=== PATIENT | female | born 1975 | race African-American/Black ===

== ENCOUNTER → 2017-02-08 | Outpatient (CLI) | payer MEDICARE, MEDICAID ==
[~2017-02-08] MED LIST: ATOR20TA9 PO; ERGO500017 PO; FERR324T5 PO; FLUT16SP2 INH; LOSA25TA5 PO; REGADENOSON 0.4 MG/5 ML SYRINGE ONE; SODI650T PO
== END | disposition home or self-care (01) ==
LOC: CFH 07:31
PROVIDERS: ATTEND Internal Medicine Cardiovascular Disease
DX: R07.9 Chest pain, unspecified (principal); I10 Essential (primary) hypertension; R06.00 Dyspnea, unspecified
CPT/HCPCS: 78452; 93017; 93306; A9502; J2785

== ENCOUNTER 2017-04-21 06:37 | Day surgery (SDC) | payer MEDICARE, MEDICAID ==
[~2017-04-21] VITALS: Ht 149.9 cm; Wt 74.0 kg
[~2017-04-21 06:37] MED LIST changes: -REGADENOSON 0.4 MG/5 ML SYRINGE ONE
[2017-04-21] MEDS ORDERED: HEPARIN 1,000 UNITS/ML, 10ML ONE (07:12)
[2017-04-21] MEDS ORDERED: PROTAMINE SULFATE 10 MG/ML, 5ML ONE (07:12)
[2017-04-21] MEDS ORDERED: BUPIVACAINE/PF 0.5% ONE (07:13)
[2017-04-21] MEDS ORDERED: THROMBIN 5,000 UNIT VIAL TP ONE (07:13)
[2017-04-21 08:02] VITALS: BP 148/99
[2017-04-21] MEDS ORDERED: CINA60TA PO (08:13)
[2017-04-21] MEDS ORDERED: ESCI20TA10 PO (08:13)
[2017-04-21] MEDS ORDERED: ALPR0.25 PO (08:14)
[2017-04-21] MEDS ORDERED: LIDOCAINE 1%, 2ML ONE (08:21)
[2017-04-21 08:27] LABS: HCG UR OBC PASS
[2017-04-21] MEDS ORDERED: FENTANYL PF 100 MCG/2ML ONE ×3 (10:08→12:18)
[2017-04-21] MEDS ORDERED: MIDAZOLAM 1 MG/ML, 2ML ONE (10:08)
[2017-04-21] MEDS ORDERED: CEFAZOLIN 1,000 MG ONE (10:41)
[2017-04-21] MEDS ORDERED: ONDANSETRON 2MG/ML, 2ML ONE (10:41)
[2017-04-21] MEDS ORDERED: PROPOFOL 10 MG/ML, 20ML ONE (10:41)
[2017-04-21] MEDS ORDERED: DEXAMETHASONE 4 MG/ML, 1ML ONE (10:41)
[2017-04-21] MEDS ORDERED: OXYcodone 5 MG/5 ML ORAL.SOL UDC ONE (12:19)
[2017-04-21] MEDS: FENTANYL PF 100 MCG/2ML IV PRN ×3 (12:20→12:58)
[2017-04-21] MEDS ORDERED: HYDROcodone/APAP 7.5-325MG/15ML UDC ONE (12:37)
[2017-04-21] MEDS ORDERED: HYDROcodone/APAP 7.5-325MG/15ML UDC PO PRN (13:30)
== END 2017-04-21 15:30 | disposition home or self-care (01) ==
LOC: OUT 06:37
PROVIDERS: ATTEND Surgery Vascular Surgery
DX: I12.0 Hypertensive chronic kidney disease with stage 5 chronic kidney disease or end stage renal disease (principal); N18.6 End stage renal disease; Z88.8 Allergy status to other drugs, medicaments and biological substances; E21.3 Hyperparathyroidism, unspecified; D64.9 Anemia, unspecified; H54.7 Unspecified visual loss
CPT/HCPCS: 36415; 36821; 80047; 81025; J0690; J1100; J1644; J2250; J2405; J2704; J2720; J3010; J3490

== ENCOUNTER 2017-06-19 13:15 | Emergency (ER) | payer MEDICARE, MEDICAID ==
[~2017-06-19] VITALS: Ht 149.9 cm; Wt 74.3 kg
[~2017-06-19 13:15] MED LIST changes: +ALPR0.25 PO; +CINA60TA PO; +ESCI20TA10 PO
[2017-06-19 15:22] LABS: BLOOD UREA NITROGEN 41 mg/dL (7-18)
[2017-06-19 17:56] VITALS: BP 145/91
== END 2017-06-19 19:30 | disposition home or self-care (01) ==
LOC: ED 15:56
DX: N92.1 Excessive and frequent menstruation with irregular cycle (principal); N92.0 Excessive and frequent menstruation with regular cycle; N30.90 Cystitis, unspecified without hematuria
CPT/HCPCS: 36415; 76856; 80048; 81001; 82040; 84703; 85025; 87086; 99285

== ENCOUNTER → 2017-08-22 | Outpatient (CLI) | payer MEDICARE, MEDICAID ==
[~2017-08-22] MED LIST changes: +CALC0.25 PO; +CHOL500050 PO; +LOSA50TA6 PO
[2017-08-22 12:02] LABS: HEMATOCRIT 40.6 % (34.6-47.8); HEMOGLOBIN 13.7 g/dL (11.7-16.4); WHITE BLOOD COUNT 7.9 x10^3/uL (3.4-10)
[2017-08-22 12:12] LABS: BLOOD UREA NITROGEN 30 mg/dL (7-18)
[2017-08-22 12:16] LABS: ASPARTATE AMINO TRANSFERASE 7 U/L (15-37)
== END | disposition home or self-care (01) ==
LOC: STAR 10:39
PROVIDERS: ATTEND Surgery
DX: I12.9 Hypertensive chronic kidney disease with stage 1 through stage 4 chronic kidney disease, or unspecified chronic kidney disease (principal); N18.4 Chronic kidney disease, stage 4 (severe); E21.3 Hyperparathyroidism, unspecified; D50.0 Iron deficiency anemia secondary to blood loss (chronic)
CPT/HCPCS: 36415; 80053; 85025; 93005

== ENCOUNTER 2017-08-29 10:51 | Day surgery (SDC) | payer MEDICARE, MEDICAID ==
[2017-08-22 11:50] VITALS: BP 147/106
[~2017-08-29] VITALS: Ht 149.9 cm; Wt 73.4 kg
[~2017-08-29 10:51] MED LIST changes: +BUPIVACAINE/PF 0.5% ONE; +CEFAZOLIN 1,000 MG ONE; +DEXAMETHASONE 4 MG/ML, 1ML ONE; +EPINEPHRINE 1 MG/ML, 1ML ONE; +GLYCOPYRROLATE 0.2MG/1ML, 5ML ONE; +HEPARIN 1,000 UNITS/ML, 10ML ONE; +LIDOCAINE/MPF 2%-EPI 1:200K, 20 ML ONE; +METOCLOPRAMIDE 5 MG/ML, 2ML ONE; +NEOSTIGMINE 1 MG/ML, 10ML ONE; +ONDANSETRON 2MG/ML, 2ML ONE; +PROPOFOL 10 MG/ML, 20ML ONE; +PROTAMINE SULFATE 10 MG/ML, 5ML ONE; +ROCURONIUM 10MG/ML,5ML ONE; +THROMBIN 20,000 UNIT VIAL TP ONE
[2017-08-29] MEDS ORDERED: SODIUM CHLORIDE 0.9% 1,000 ML IV SCH (11:29)
[2017-08-29 11:30] LABS: HCG UR LOT HCG7030192
[2017-08-29 11:32] VITALS: BP 147/106
[2017-08-29 11:35] LABS: HCG UR OBC PASS
[2017-08-29] MEDS ORDERED: FENTANYL PF 100 MCG/2ML ONE ×2 (14:06→15:57)
[2017-08-29] MEDS ORDERED: ACETAMINOPHEN 325 MG TABLET PO PRN (14:30)
[2017-08-29] MEDS ORDERED: LABETALOL 5MG/ML, 20ML IV PRN (14:30)
[2017-08-29] MEDS ORDERED: hydrALAzine 20 MG/ML, 1ML IV PRN (14:30)
[2017-08-29] MEDS ORDERED: ONDANSETRON 2MG/ML, 2ML IVPush PRN (14:30)
[2017-08-29] MEDS ORDERED: HYDROmorphone 1 MG/ML, 1ML IV PRN (14:30)
[2017-08-29] MEDS ORDERED: MIDAZOLAM 1 MG/ML, 2ML IV PRN (14:30)
[2017-08-29] MEDS ORDERED: PROMETHAZINE 25 MG/ML, 1ML IV PRN (14:30)
[2017-08-29] MEDS ORDERED: OXYcodone 5 MG/5 ML ORAL.SOL UDC PO PRN (14:30)
[2017-08-29] MEDS ORDERED: FENTANYL PF 100 MCG/2ML IV PRN (14:30)
[2017-08-29] MEDS ORDERED: ONDANSETRON 2MG/ML, 2ML ONE (15:57)
[2017-08-29] MEDS ORDERED: OXYcodone 5 MG/5 ML ORAL.SOL UDC ONE (15:57)
[2017-08-29] MEDS ORDERED: PROMETHAZINE 25 MG/ML, 1ML ONE (15:57)
== END 2017-08-29 18:15 ==
LOC: OUT 10:51
PROVIDERS: ATTEND Surgery
DX: I12.9 Hypertensive chronic kidney disease with stage 1 through stage 4 chronic kidney disease, or unspecified chronic kidney disease (principal); N18.9 Chronic kidney disease, unspecified; F32.9 Major depressive disorder, single episode, unspecified; E78.2 Mixed hyperlipidemia; K21.9 Gastro-esophageal reflux disease without esophagitis; D50.9 Iron deficiency anemia, unspecified; E21.3 Hyperparathyroidism, unspecified
CPT/HCPCS: 36415; 36821; 81025; 85610; 85730; C1729; C1757; C1760; J0171; J0690; J1100; J1644; J2405; J2704; J2710; J2765; J3010; J3490; J7030; J2720

== ENCOUNTER → 2018-09-15 | Outpatient (CLI) | payer MEDICARE, MEDICAID ==
[~2018-09-15] MED LIST changes: -BUPIVACAINE/PF 0.5% ONE; -CEFAZOLIN 1,000 MG ONE; +CINA30TA2 PO; -DEXAMETHASONE 4 MG/ML, 1ML ONE; -EPINEPHRINE 1 MG/ML, 1ML ONE; -GLYCOPYRROLATE 0.2MG/1ML, 5ML ONE; -HEPARIN 1,000 UNITS/ML, 10ML ONE; +IRON SULFATE PO; -LIDOCAINE/MPF 2%-EPI 1:200K, 20 ML ONE; -LOSA25TA5 PO; +LOSA25TA6 PO; -LOSA50TA6 PO; +LOSA50TA7 PO; -METOCLOPRAMIDE 5 MG/ML, 2ML ONE; -NEOSTIGMINE 1 MG/ML, 10ML ONE; -ONDANSETRON 2MG/ML, 2ML ONE; -PROPOFOL 10 MG/ML, 20ML ONE; -PROTAMINE SULFATE 10 MG/ML, 5ML ONE; -ROCURONIUM 10MG/ML,5ML ONE; -THROMBIN 20,000 UNIT VIAL TP ONE
[2018-09-15 11:30] LABS: BASOPHILS # (AUTO) 0.03 x10^3/uL (0-0.1); BASOPHILS % (AUTO) 0 % (0-1); EOSINOPHILS # (AUTO) 0.25 x10^3/uL (0-0.4); EOSINOPHILS % (AUTO) 3 % (1-7); LYMPHOCYTES # (AUTO) 1.72 x10^3/uL (1-3.4); LYMPHOCYTES % (AUTO) 23 % (22-44); MD NO; MEAN CORPUSCULAR HEMOGLOBIN 28.7 pg (27.0-34.8); MEAN CORPUSCULAR VOLUME 84.3 fL (80-100); MEAN PLATELET VOLUME 7.3 fL (7.4-10.4); MONOCYTES # (AUTO) 0.29 x10^3/uL (0.2-0.8); MONOCYTES % (AUTO) 4 % (2-9); NEUTROPHILS # (AUTO) 5.26 x10^3/uL (1.8-6.8); NEUTROPHILS % (AUTO) 70 % (42-75); PLATELET COUNT 315 x10^3/uL (130-400); RED BLOOD COUNT 4.54 x10^6/uL (3.82-5.3); RED CELL DISTRIBUTION WIDTH 15.5 % (9.6-15.2)
[2018-09-15 11:42] LABS: ALBUMIN 3.4 g/dL (3.4-5.0); ANION GAP 7 mmol/L (5-15); CALCIUM 10.3 mg/dL (8.5-10.1); CHLORIDE 117 mmol/L (98-107)
[2018-09-15 11:45] LABS: ALANINE AMINOTRANSFERASE 18 U/L (12-78); ALKALINE PHOSPHATASE 103 U/L (45-117); BILIRUBIN,TOTAL 0.5 mg/dL (0.2-1.0); CREATININE 4.93 mg/dL (0.55-1.02); TOTAL PROTEIN 7.8 g/dL (6.4-8.2)
== END | disposition home or self-care (01) ==
LOC: STAR 10:38
PROVIDERS: ATTEND Surgery
DX: Z01.818 Encounter for other preprocedural examination (principal)
CPT/HCPCS: 36415; 80053; 85025

== ENCOUNTER 2018-09-22 09:46 | Observation (INO) | payer MEDICARE, MEDICAID ==
[~2018-09-22] VITALS: Ht 149.9 cm; Wt 74.0 kg
[2018-09-22] MEDS ORDERED: LACTATED RINGERS 1,000 ML IV SCH (10:10)
[2018-09-22 10:32] VITALS: BP 129/85
[2018-09-22] MEDS ORDERED: SODIUM CHLORIDE 0.9% 1,000 ML IV SCH (10:45)
[2018-09-22] MEDS ORDERED: PROTAMINE SULFATE 10 MG/ML, 5ML ONE (11:55)
[2018-09-22] MEDS ORDERED: BUPIVACAINE/PF 0.5% ONE (11:55)
[2018-09-22] MEDS ORDERED: LIDOCAINE 1%-EPI 1:100K, 30ML ONE (11:55)
[2018-09-22] MEDS ORDERED: HEPARIN 1,000 UNITS/ML, 10ML ONE (11:55)
[2018-09-22] MEDS ORDERED: EPINEPHRINE 1 MG/ML, 1ML ONE (11:55)
[2018-09-22] MEDS ORDERED: SODIUM BICARBONATE 1 MEQ/ML, 50ML VIAL ONE (12:14)
[2018-09-22] MEDS ORDERED: LIDOCAINE-MPF 2% ,5ML ONE (12:14)
[2018-09-22] MEDS ORDERED: LIDOCAINE/PF 1%, 30ML ONE (12:14)
[2018-09-22] MEDS ORDERED: LIDOCAINE/MPF 2%-EPI 1:200K, 20 ML ONE (12:14)
[2018-09-22] MEDS ORDERED: FENTANYL PF 100 MCG/2ML ONE (12:15)
[2018-09-22] MEDS ORDERED: MIDAZOLAM 1 MG/ML, 2ML ONE (12:15)
[2018-09-22] MEDS ORDERED: PROPOFOL 50 ML ONE (12:16)
[2018-09-22] MEDS ORDERED: ONDANSETRON 2MG/ML, 2ML ONE (12:22)
[2018-09-22] MEDS ORDERED: FENTANYL PF 100 MCG/2ML IV PRN (12:30)
[2018-09-22] MEDS ORDERED: LABETALOL 5MG/ML, 20ML IV PRN (12:30)
[2018-09-22] MEDS ORDERED: ACETAMINOPHEN 325 MG TABLET PO PRN (12:30)
[2018-09-22] MEDS ORDERED: hydrALAzine 20 MG/ML, 1ML IV PRN (12:30)
[2018-09-22] MEDS ORDERED: OXYcodone 5 MG/5 ML ORAL.SOL UDC PO PRN (12:30)
[2018-09-22] MEDS ORDERED: MORPHINE SULFATE 4 MG/ML, 1ML IVPush PRN (12:30)
[2018-09-22] MEDS ORDERED: ONDANSETRON ODT 8 MG PO PRN (12:30)
[2018-09-22] MEDS ORDERED: ONDANSETRON 2MG/ML, 2ML IV PRN (12:30)
[2018-09-22] MEDS ORDERED: CEFAZOLIN 1,000 MG ONE ×2 (13:49)
[2018-09-22] MEDS ORDERED: HYDROcodone/APAP 5/325 TABLET PO PRN (14:00)
[2018-09-22] MEDS ORDERED: ONDANSETRON 2MG/ML, 2ML IVPush PRN (14:00)
[2018-09-22] MEDS ORDERED: SODIUM CHLORIDE FLUSH 10ML SYR IVF SCH (21:00)
== END 2018-09-22 16:10 | disposition home or self-care (01) ==
LOC: OUT 09:46 → ORIP 14:00
PROVIDERS: ADMIT Surgery; ATTEND Surgery
DX: I12.9 Hypertensive chronic kidney disease with stage 1 through stage 4 chronic kidney disease, or unspecified chronic kidney disease (principal); N18.4 Chronic kidney disease, stage 4 (severe); E78.5 Hyperlipidemia, unspecified; E21.3 Hyperparathyroidism, unspecified
CPT/HCPCS: 36821; 81025; G0378; J0690; J1644; J2250; J2405; J2704; J3010; J3490; J7030; J0171; J2720

== ENCOUNTER → 2018-12-06 | Outpatient (CLI) | payer MEDICARE, MEDICAID ==
[~2018-12-06] MED LIST changes: +ATOR20TA37 PO; -ATOR20TA9 PO; +LOSA25TA25 PO; -LOSA25TA6 PO
== END | disposition home or self-care (01) ==
LOC: CFH 13:04
PROVIDERS: ATTEND Family Medicine
DX: Z12.31 Encounter for screening mammogram for malignant neoplasm of breast (principal)
CPT/HCPCS: 77063; 77067

== ENCOUNTER → 2019-02-26 | Outpatient (CLI) | payer MEDICARE, MEDICAID ==
[~2019-02-26] MED LIST changes: +LOSA50TA14 PO; -LOSA50TA7 PO
== END | disposition home or self-care (01) ==
LOC: CFH 11:51
PROVIDERS: ATTEND Surgery
DX: E04.1 Nontoxic single thyroid nodule (principal); E21.3 Hyperparathyroidism, unspecified
CPT/HCPCS: 76536

== ENCOUNTER → 2019-02-28 | Outpatient (CLI) | payer MEDICARE, MEDICAID ==
[~2019-02-28] MED LIST changes: +OMNIPAQUE 350 MG/ML, 100ML BOTTLE ONE
== END | disposition home or self-care (01) ==
LOC: CFH 09:00
PROVIDERS: ATTEND Surgery
DX: E21.3 Hyperparathyroidism, unspecified (principal); J98.59 Other diseases of mediastinum, not elsewhere classified
CPT/HCPCS: 70498; Q9967

== ENCOUNTER → 2019-04-18 | Outpatient (CLI) | payer MEDICARE, MEDICAID ==
[~2019-04-18] MED LIST changes: -OMNIPAQUE 350 MG/ML, 100ML BOTTLE ONE
[2019-04-18 11:02] LABS: BASOPHILS # (AUTO) 0.03 x10^3/uL (0-0.1); BASOPHILS % (AUTO) 0 % (0-1); EOSINOPHILS # (AUTO) 0.27 x10^3/uL (0-0.4); EOSINOPHILS % (AUTO) 4 % (1-7); LYMPHOCYTES # (AUTO) 1.45 x10^3/uL (1-3.4); LYMPHOCYTES % (AUTO) 23 % (22-44); MD NO; MEAN CORPUSCULAR HEMOGLOBIN 28.9 pg (27.0-34.8); MEAN CORPUSCULAR HGB CONC 33.4 g/dL (32.4-35.8); MEAN CORPUSCULAR VOLUME 86.6 fL (80-100); MEAN PLATELET VOLUME 6.9 fL (7.4-10.4); MONOCYTES # (AUTO) 0.23 x10^3/uL (0.2-0.8); MONOCYTES % (AUTO) 4 % (2-9); NEUTROPHILS # (AUTO) 4.39 x10^3/uL (1.8-6.8); NEUTROPHILS % (AUTO) 69 % (42-75); PLATELET COUNT 297 x10^3/uL (130-400); RED BLOOD COUNT 4.49 x10^6/uL (3.82-5.3); RED CELL DISTRIBUTION WIDTH 14.3 % (9.6-15.2)
[2019-04-18 11:13] LABS: ALANINE AMINOTRANSFERASE 17 U/L (12-78); ALBUMIN 3.5 g/dL (3.4-5.0); ANION GAP 9 mmol/L (5-15); CALCIUM 11.5 mg/dL (8.5-10.1); CHLORIDE 115 mmol/L (98-107); CREATININE 5.25 mg/dL (0.55-1.02); INTERNATIONAL NORMALIZED RATIO 0.95 (0.93-1.1)
[2019-04-18 11:16] LABS: ALKALINE PHOSPHATASE 131 U/L (45-117); BILIRUBIN,TOTAL 0.5 mg/dL (0.2-1.0); TOTAL PROTEIN 7.6 g/dL (6.4-8.2)
== END | disposition home or self-care (01) ==
LOC: STAR 10:00
PROVIDERS: ATTEND Surgery
DX: Z01.818 Encounter for other preprocedural examination (principal); N18.4 Chronic kidney disease, stage 4 (severe)
CPT/HCPCS: 36415; 80053; 85025; 85610; 85730; 93005

== ENCOUNTER 2019-04-26 05:49 | Day surgery (SDC) | payer MEDICARE, MEDICAID ==
[~2019-04-26] VITALS: Ht 149.9 cm; Wt 74.1 kg
[2019-04-26 06:38] VITALS: BP 127/83
[2019-04-26] MEDS ORDERED: SODIUM CHLORIDE 0.9% 1,000 ML IV SCH (06:43)
[2019-04-26] MEDS ORDERED: BUPIVACAINE/PF 0.5% ONE (07:03)
[2019-04-26] MEDS ORDERED: PROTAMINE SULFATE 10 MG/ML, 5ML ONE (07:03)
[2019-04-26] MEDS ORDERED: HEPARIN 1,000 UNITS/ML, 10ML ONE (07:04)
[2019-04-26] MEDS ORDERED: EPINEPHRINE 1 MG/ML, 1ML ONE (07:04)
[2019-04-26] MEDS ORDERED: THROMBIN 5,000 UNIT VIAL TP ONE (07:04)
[2019-04-26 07:07] LABS: HCG UR SG 1.009 (1.003-1.030)
[2019-04-26] MEDS ORDERED: FENTANYL PF 100 MCG/2ML ONE (07:13)
[2019-04-26] MEDS ORDERED: MIDAZOLAM 1 MG/ML, 2ML ONE (07:13)
[2019-04-26] MEDS ORDERED: GLYCOPYRROLATE 0.2MG/1ML, 5ML ONE (07:31)
[2019-04-26] MEDS ORDERED: DEXAMETHASONE 4 MG/ML, 1ML ONE (07:31)
[2019-04-26] MEDS ORDERED: ROCURONIUM 10 MG/ML,10ML ONE (07:31)
[2019-04-26] MEDS ORDERED: NEOSTIGMINE 1 MG/ML, 10ML ONE (07:31)
[2019-04-26] MEDS ORDERED: SUCCINYLCHOLINE 20 MG/ML, 10ML ONE (07:31)
[2019-04-26] MEDS ORDERED: ONDANSETRON 2MG/ML, 2ML ONE ×2 (07:31→09:19)
[2019-04-26] MEDS ORDERED: PROPOFOL 10 MG/ML, 20ML ONE (07:31)
[2019-04-26] MEDS ORDERED: CEFAZOLIN 1,000 MG ONE (07:31)
[2019-04-26] MEDS ORDERED: ONDANSETRON 2MG/ML, 2ML IVPush PRN (08:30)
[2019-04-26] MEDS ORDERED: MEPERIDINE/PF 25MG/0.5ML IVPush PRN (08:30)
[2019-04-26] MEDS ORDERED: KETOROLAC 30 MG/1 ML IV PRN (08:30)
[2019-04-26] MEDS ORDERED: OXYcodone 5 MG/5 ML ORAL.SOL UDC PO PRN (08:30)
[2019-04-26] MEDS ORDERED: METOCLOPRAMIDE 5 MG/ML, 2ML IV PRN (08:30)
[2019-04-26] MEDS ORDERED: ALBUTEROL SULFATE 2.5 MG/3 ML NPPB PRN (08:30)
[2019-04-26] MEDS ORDERED: PROMETHAZINE 25 MG/ML, 1ML IV PRN (08:30)
[2019-04-26] MEDS ORDERED: FENTANYL PF 100 MCG/2ML IV PRN (08:30)
[2019-04-26] MEDS ORDERED: HYDROmorphone 1 MG/ML, 1ML INJ IV PRN (08:30)
[2019-04-26] MEDS ORDERED: hydrALAzine 20 MG/ML, 1ML IV PRN (08:30)
[2019-04-26] MEDS ORDERED: LABETALOL 5MG/ML, 20ML IV PRN (08:30)
[2019-04-26] MEDS ORDERED: LABETALOL 5 MG/ML SYRINGE IV PRN (09:30)
[2019-04-26] MEDS ORDERED: HYDROcodone/APAP 5/325 TABLET ONE (10:23)
[2019-04-26] MEDS ORDERED: HYDROcodone/APAP 5/325 TABLET PO PRN (10:30)
== END 2019-04-26 11:35 | disposition home or self-care (01) ==
LOC: OUT 05:49
PROVIDERS: ATTEND Surgery
DX: I12.0 Hypertensive chronic kidney disease with stage 5 chronic kidney disease or end stage renal disease (principal); N18.6 End stage renal disease; E21.3 Hyperparathyroidism, unspecified; Z91.013 Allergy to seafood; Z88.8 Allergy status to other drugs, medicaments and biological substances; Z79.899 Other long term (current) drug therapy; Z80.9 Family history of malignant neoplasm, unspecified; Z82.49 Family history of ischemic heart disease and other diseases of the circulatory system
CPT/HCPCS: 36821; 81025; C1768; J0171; J0330; J0690; J1100; J1644; J2250; J2405; J2704; J2710; J3010; J7030; J2720

== ENCOUNTER 2019-06-19 13:08 | Outpatient (CLI) | payer MEDICARE, MEDICAID | END 2019-06-19 23:59 | disposition home or self-care (01) | LOC: STAR 13:08 | PROVIDERS: ATTEND Surgery | DX: Z02.9 Encounter for administrative examinations, unspecified (principal) ==

== ENCOUNTER 2019-06-25 06:18 | Inpatient (IN) | payer MEDICARE, MEDICAID ==
[~2019-06-25] VITALS: Ht 149.9 cm; Wt 77.0 kg
[2019-06-26 06:43] VITALS: BP 110/74
== END 2019-06-26 10:00 | disposition home or self-care (01) | DRG 625 ==
LOC: ORIP 06:18 → 4NOR 11:19 → DCLOUNGE 06-26 09:52
PROVIDERS: ADMIT Surgery; ATTEND Surgery
PROC: 0GB Endocrine System, Excision (ICD-10-PCS; principal; 2019-06-25)
DX: D35.1 Benign neoplasm of parathyroid gland (principal); N18.6 End stage renal disease; I12.0 Hypertensive chronic kidney disease with stage 5 chronic kidney disease or end stage renal disease; E21.3 Hyperparathyroidism, unspecified; E78.5 Hyperlipidemia, unspecified; Z88.8 Allergy status to other drugs, medicaments and biological substances; Z91.013 Allergy to seafood; Z80.0 Family history of malignant neoplasm of digestive organs; Z82.49 Family history of ischemic heart disease and other diseases of the circulatory system
CPT/HCPCS: 36415; 71045; 81025; 82040; 82310; 83970; 86850; 86900; 88305; 88331; G0378; J0690; J1100; J1644; J2250; J2405; J2704; J2710; J3010; J0330

== ENCOUNTER 2019-07-03 08:41 | Outpatient (CLI) | payer MEDICARE, MEDICAID | END 2019-07-03 23:59 | disposition home or self-care (01) | LOC: CFH 08:41 | PROVIDERS: ATTEND Internal Medicine Cardiovascular Disease | DX: I10 Essential (primary) hypertension (principal); R06.00 Dyspnea, unspecified; E78.5 Hyperlipidemia, unspecified; Z76.82 Awaiting organ transplant status | CPT/HCPCS: 93306 ==

== ENCOUNTER → 2020-01-18 | Outpatient (CLI) | payer MEDICARE, MEDICAID ==
[~2020-01-18] MED LIST changes: +ACET-76 PO; +FERR325T16 PO; +MEDR150V INJ; +OXYC5CAP2 PO
== END | disposition home or self-care (01) ==
LOC: CFH 11:57
PROVIDERS: ATTEND Family Medicine
DX: Z12.31 Encounter for screening mammogram for malignant neoplasm of breast (principal)
CPT/HCPCS: 77063; 77067

== ENCOUNTER 2020-04-22 10:26 | Outpatient (CLI) | payer MEDICARE, MEDICAID | END 2020-04-22 23:59 | disposition home or self-care (01) | LOC: RAD 10:26 | PROVIDERS: ATTEND Internal Medicine Nephrology | DX: E21.0 Primary hyperparathyroidism (principal); I12.0 Hypertensive chronic kidney disease with stage 5 chronic kidney disease or end stage renal disease; N18.5 Chronic kidney disease, stage 5; E55.9 Vitamin D deficiency, unspecified; R80.9 Proteinuria, unspecified; E61.1 Iron deficiency | CPT/HCPCS: 78070; A9500 ==

== ENCOUNTER → 2021-01-19 | Outpatient (CLI) | payer MEDICARE, MEDICAID | END | disposition home or self-care (01) | LOC: CFH 09:54 | PROVIDERS: ATTEND Family Medicine | DX: Z12.31 Encounter for screening mammogram for malignant neoplasm of breast (principal); Z12.39 Encounter for other screening for malignant neoplasm of breast | CPT/HCPCS: 76641; 77063; 77067 ==

== ENCOUNTER 2021-07-23 15:50 | Outpatient (CLI) | payer MEDICARE, MEDICAID ==
[~2021-07-23 15:50] MED LIST changes: +FERR324T23 PO; -FERR325T16 PO
== END 2021-07-23 23:59 | disposition home or self-care (01) ==
LOC: CFH 15:50 → RAD 23:59
PROVIDERS: ATTEND Internal Medicine Nephrology
DX: I12.9 Hypertensive chronic kidney disease with stage 1 through stage 4 chronic kidney disease, or unspecified chronic kidney disease (principal); R10.9 Unspecified abdominal pain; D89.9 Disorder involving the immune mechanism, unspecified; N18.2 Chronic kidney disease, stage 2 (mild); R80.9 Proteinuria, unspecified; E61.1 Iron deficiency; Z94.4 Liver transplant status
CPT/HCPCS: 76700

== ENCOUNTER 2021-07-24 10:25 | Outpatient (CLI) | payer MEDICARE, MEDICAID | END 2021-07-24 23:59 | disposition home or self-care (01) | LOC: LAB 10:25 → RAD 23:59 | PROVIDERS: ATTEND Internal Medicine Nephrology | DX: I12.9 Hypertensive chronic kidney disease with stage 1 through stage 4 chronic kidney disease, or unspecified chronic kidney disease (principal); N18.2 Chronic kidney disease, stage 2 (mild); R80.9 Proteinuria, unspecified; E61.1 Iron deficiency; D89.9 Disorder involving the immune mechanism, unspecified; R10.9 Unspecified abdominal pain; Z94.0 Kidney transplant status | CPT/HCPCS: 71046 ==